=== PATIENT | male | born 1940 | race Hispanic/Latino ===

== ENCOUNTER → 2020-12-14 | Outpatient (CLI) | payer OTHER ==
[~2020-12-14] VITALS: Ht 160 cm; Wt 98.9 kg
[~2020-12-14] MED LIST: REGADENOSON 0.4 MG/5 ML PF SYG IVP SCH
== END | disposition home or self-care (01) ==
LOC: SHCH 07:57
PROVIDERS: ATTEND Internal Medicine Cardiovascular Disease
DX: I25.9 Chronic ischemic heart disease, unspecified (principal); R07.9 Chest pain, unspecified
CPT/HCPCS: 78452; 93017; 96374; A9500 ×2

== ENCOUNTER 2021-01-19 05:59 | Day surgery (SDC) | payer OTHER ==
[2021-01-17 12:53] LABS: BASOPHILS % (AUTO) 1.3 % (0.0-5.0); EOSINOPHILS % (AUTO) 5.2 % (0.0-8.0); HEMATOCRIT 44.2 % (42-54); LYMPHOCYTES % (AUTO) 35.8 % (21.0-51.0); MEAN CORPUSCULAR HEMOGLOBIN 33.9 pg (27.0-33.0); MEAN CORPUSCULAR HGB CONC 33.9 g/dL (32.0-36.0); MONOCYTES % (AUTO) 8.2 % (3.0-13.0); NEUTROPHILS % (AUTO) 49.2 % (40.0-77.0); PLATELET COUNT (AUTO) 261 K/uL (130-400); RED BLOOD CELL COUNT(AUTO) 4.42 MIL/uL (4.50-6.20); RED CELL DISTRIBUTION WIDTH 12.1 % (11.0-15.5); WHITE BLOOD COUNT (AUTO) 7.9 K/uL (4.8-10.8)
[2021-01-17 13:02] LABS: APPEARANCE,URINE Clear (CLEAR); BILIRUBIN,URINE Negative (NEGATIVE); COLOR,URINE Yellow (YELLOW); GLUCOSE, URINE (UA) Negative (NEGATIVE); KETONES,URINE Negative (NEGATIVE); LEUKOCYTE ESTERASE ,URINE Trace (NEGATIVE); NITRATE,URINE Negative (NEGATIVE); OCCULT BLOOD,URINE Negative (NEGATIVE); PROTEIN,URINE POS 1+ mg/dL (NEGATIVE)
[2021-01-17 13:06] LABS: CREATININE 1.5 mg/dL (0.5-1.5); POTASSIUM 4.3 mmol/L (3.5-5.1)
[2021-01-17 13:12] LABS: INR 1.05 (0.85-1.15); PROTHROMBIN TIME 11.4 SEC (9.6-11.6)
[2021-01-17 13:13] LABS: PARTIAL THROMBOPLASTIN TIME 30.7 SEC (26.3-35.5)
[2021-01-17 13:14] LABS: BACTERIA,URINE Rare /HPF (None Seen); RBC,URINE 0-1 /HPF (0-1); SQUAMOUS EPITHELIAL CELL,UR Rare /HPF (0-2); WBC,URINE 0-1 /HPF (0-1)
[2021-01-18 14:46] VITALS: BP 176/92
[~2021-01-19] VITALS: Ht 162.6 cm; Wt 99.8 kg
[2021-01-19] VITALS (10 sets, daily range): BP systolic 114–154; BP diastolic 59–86
[~2021-01-19 05:59] MED LIST changes: +ASPI-1197 PO; +ATOR20TA65 PO; +LEVO125C4 PO; +LISI10TA24 PO; -REGADENOSON 0.4 MG/5 ML PF SYG IVP SCH
[2021-01-19] MEDS ORDERED: IOHEXOL 350 MG/ML 100ML INFUS..BTL IV ONE (07:06)
[2021-01-19] MEDS ORDERED: HEPARIN SODIUM 1000UNIT/ML 10ML VIAL ONE (07:06)
[2021-01-19] MEDS ORDERED: IOHEXOL-350 50ML VIAL IV ONE (07:06)
[2021-01-19] MEDS ORDERED: BIVALIRUDIN 250 MG/VIAL IV ONE (07:06)
[2021-01-19] MEDS ORDERED: NITROGLYCERIN 2 MG/VIAL VIAL IV ONE (07:06)
[2021-01-19] MEDS ORDERED: LIDOCAINE HCL 2% 20ML ONE (07:07)
[2021-01-19] MEDS ORDERED: MIDAZOLAM HCL 1 MG/ML 2ML VIAL ONE (07:07)
[2021-01-19] MEDS ORDERED: FENTANYL CITRATE PF 50 MCG/1 ML 2ML VIAL ONE (07:07)
[2021-01-19] MEDS ORDERED: SODIUM CHLORIDE 0.9% 1000ML 1,000 ML IV SCH ×2 (08:00→09:15)
[2021-01-19] MEDS ORDERED: LABETALOL HCL 5 MG/ML 20ML VIAL IV ONE (08:30)
== END 2021-01-19 14:15 | disposition home or self-care (01) ==
LOC: DAH 05:59
PROVIDERS: ATTEND Internal Medicine Cardiovascular Disease
DX: I25.110 Atherosclerotic heart disease of native coronary artery with unstable angina pectoris (principal); R94.31 Abnormal electrocardiogram [ECG] [EKG]; I10 Essential (primary) hypertension; E66.9 Obesity, unspecified; E78.5 Hyperlipidemia, unspecified; K21.9 Gastro-esophageal reflux disease without esophagitis; Z79.82 Long term (current) use of aspirin; Z79.01 Long term (current) use of anticoagulants; Z79.899 Other long term (current) drug therapy; Z90.49 Acquired absence of other specified parts of digestive tract; Z98.890 Other specified postprocedural states
CPT/HCPCS: 36415; 71045; 80048; 81001; 85025; 85610; 85730; 93005; 93458; A4215; A4216; A4221; A4222; A4223 ×3; A4606; A4663; C1760; C1894 ×3; J1644; J2250; J3490 ×3; J7030; Q9965; Q9967 ×2; 96360; 96361; 99156; 99157; J0583; J3010

== ENCOUNTER → 2022-01-13 | Outpatient (CLI) | payer OTHER | END | disposition home or self-care (01) | LOC: RAH 13:29 | PROVIDERS: ATTEND Family Medicine | DX: R51.9 Headache, unspecified (principal) | CPT/HCPCS: 70450 ==